=== PATIENT | female | born 1940 | race African-American/Black ===

== ENCOUNTER → 2020-11-19 | Outpatient (CLI) | payer MEDICARE, OTHER ==
[~2020-11-19] MED LIST: AMLO-186 PO; GLIM4TAB8 PO; IBUP200T58 PO
--- NOTE | 2020-11-20 10:13 | RAD ---
DATE: 11/19/2020 9:59 AM EXAM: MAMMO JONATAN SCREENING BILATERAL HISTORY: Screening COMPARISON: 09/10/2015 Bilateral CC and MLO views of the breasts were performed. Bilateral breast tomosynthesis was performed in CC and MLO projections. This study was interpreted with the benefit of Computerized Aided Detection (CAD). FINDINGS: Breast Density: SCATTERED The breast parenchyma shows scattered fibroglandular densities. Breast parenchyma level B No suspicious masses, microcalcifications or architectural distortion is present to suggest malignancy in either breast. The visualized axillae are unremarkable. IMPRESSION: No mammographic evidence of malignancy. BI-RADS CATEGORY: 1 NEGATIVE RECOMMENDED FOLLOW-UP: 12M 12 MONTH FOLLOW-UP Annual screening mammography is recommended, unless clinically indicated sooner based on symptoms or change in physical exam. PQRS compliance statement: Patient information was entered into a reminder system with a target due date for the next mammogram. Mammography is a sensitive method for finding small breast cancers, but it does not detect them all and is not a substitute for careful clinical examination. A negative mammogram does not negate a clinically suspicious finding and should not result in delay in biopsying a clinically suspicious abnormality. "Our facility is accredited by the [employer] Mammography Program."
== END ==
LOC: MAMMO 09:45
PROVIDERS: ATTEND Internal Medicine
DX: Z12.31 Encounter for screening mammogram for malignant neoplasm of breast (principal)
CPT/HCPCS: 77063; 77067

== ENCOUNTER → 2021-01-04 | Outpatient (CLI) | payer MEDICARE ==
--- NOTE | 2021-01-04 14:22 | RAD ---
EXAM: AP, lateral and oblique views of the right knee DATE: 01/04/2021 11:04 AM CLINICAL INDICATION: Reason: PAIN,INJURED KNEE LIFTING FLOWER POT. / Spl. Instructions: / History: COMPARISON: None. FINDINGS: Changes of right medial compartment hemiarthroplasty in good alignment without definite hardware comp lication. Lateral compartment osteophytes with mild joint space narrowing. Moderate right knee joint effusion with joint bodies patellar recess. Decreased bone mineral density. IMPRESSION: 1. Moderate knee joint effusion with joint body in the suprapatellar recess. 2. Right knee joint osteoarthritis with mild lateral compartment joint space narrowing and small ost eophytes. 3. Changes of medial unicompartmental arthroplasty without definite hardware complication or associa samaria fracture. Electronically signed by: Rojelio Jackson MD (01/04/2021 2:19 PM) [id number]
== END ==
LOC: RAD 10:53
PROVIDERS: ATTEND Internal Medicine
DX: M17.11 Unilateral primary osteoarthritis, right knee (principal); M25.461 Effusion, right knee
CPT/HCPCS: 73562

== ENCOUNTER 2021-08-19 05:53 | Day surgery (SDC) | payer MEDICARE ==
[~2021-08-19] VITALS: Ht 161.3 cm; Wt 75.9 kg
[2021-08-19] MEDS ORDERED: HYDROmorphone 2 MG/ML VIAL IVP PRN (06:00)
[2021-08-19] MEDS ORDERED: fentaNYL PF VIAL 100 MCG/2 ML VIAL IVP PRN ×2 (06:00)
[2021-08-19] MEDS ORDERED: MORPHINE SULFATE 2 MG/ML INJ. IVP PRN (06:00)
[2021-08-19] MEDS ORDERED: PROCHLORPERAZINE 10 MG/2 ML VIAL. IVP PRN (06:00)
[2021-08-19] MEDS ORDERED: IV RINGERS,LACTATED 1000ML 1,000 ML IV SCH (06:00)
[2021-08-19 06:27] VITALS: BP 158/70
[2021-08-19] MEDS ORDERED: DEXAMETHASONE SOD PHOS 4 MG/ML VIAL ONE (06:46)
[2021-08-19] MEDS ORDERED: PROPOFOL 10 MG/ML (20ML) VIAL. IV ONE (06:46)
[2021-08-19] MEDS ORDERED: ONDANSETRON PF 4 MG/2 ML VIAL. ONE (06:47)
[2021-08-19] MEDS ORDERED: fentaNYL PF VIAL 100 MCG/2 ML VIAL ONE (06:49)
[2021-08-19] MEDS ORDERED: LIDOCAINE 1% PF 30 ML VIAL. ONE (07:12)
[2021-08-19] MEDS ORDERED: 0.9 % SODIUM CHLORIDE 20 ML VIAL. IJ ONE (07:19)
[2021-08-19] MEDS ORDERED: LIDOCAINE 2% PF 5 ML VIAL. ONE (07:19)
[2021-08-19] MEDS ORDERED: BUPIVACAINE MPF 0.25% 30 ML VIAL. ONE (07:20)
[2021-08-19] MEDS ORDERED: TRAM50TA PO (08:02)
--- NOTE | 2021-08-19 08:05 | PDOC4 ---
OPERATIVE NOTE Date: Date: Aug 19, 2021 Pre-Op Diagnosis: Carpal tunnel syndrome right Post-Op Diagnosis: Same Procedure Performed: Carpal tunnel release right Surgeon: Anam Anesthesia Type: Azam block Blood Loss: 5 cc Specimans Obtained: None Findings: See dictation Complications: None STEFANIE SERNA Jr., DO Aug 19, 2021 08:05
--- NOTE | 2021-08-19 08:18 | OP ---
DATE OF SURGERY: 08/19/2021 PREOPERATIVE DIAGNOSIS: Carpal tunnel syndrome, chronic, right. POSTOPERATIVE DIAGNOSIS: Carpal tunnel syndrome, chronic, right. PROCEDURE: Release of transverse carpal ligament, right. SURGEON: Serafin Mendieta Jr, DO ANESTHESIA: Azam block. COMPLICATIONS: None. ESTIMATED BLOOD LOSS: 5 mL DESCRIPTION OF PROCEDURE: The patient was taken to the operative suite, given the anesthetic. Following this, the right upper extremity was then prepped and draped in a sterile fashion. Incision was made through skin and subcutaneous tissues along the area of the transverse carpal ligament in line with the radial border of the fourth digit. This was carefully taken through the palmar fascia down to the transverse carpal ligament, which was identified in its entirety. This was then released longitudinally and the underlying nerve was noted to be completely intact at this point. The wound was then thoroughly irrigated. A sterile dressing was applied. Tourniquet was deflated with good return of pulses and capillary refill. The patient was then taken from the operative bed to the postoperative bed, taken to the PACU in stable condition. AZIZA DR: Monet TID: [id number]
[2021-08-19 08:25] VITALS: BP 147/97
[2021-08-19] MEDS ORDERED: traMADol 50 MG TABLET ONE (08:26)
[2021-08-19] MEDS ORDERED: traMADol 50 MG TABLET PO ONE (08:30)
== END 2021-08-19 09:07 | disposition home or self-care (01) ==
LOC: SURG 05:53
PROVIDERS: ATTEND Orthopaedic Surgery
PROC: 01N50ZZ Release Median Nerve, Open Approach (ICD-10-PCS; principal; 2021-08-19 07:30)
DX: G56.01 Carpal tunnel syndrome, right upper limb (principal); I10 Essential (primary) hypertension; E78.00 Pure hypercholesterolemia, unspecified; E11.9 Type 2 diabetes mellitus without complications; Z87.891 Personal history of nicotine dependence; Z79.899 Other long term (current) drug therapy; Z98.51 Tubal ligation status; Z98.890 Other specified postprocedural states; Z72.89 Other problems related to lifestyle; Z88.8 Allergy status to other drugs, medicaments and biological substances
CPT/HCPCS: 64721; 82962; A4930; J0690; J1100; J2405; J2704; J3010; J3490; A4657; A6452

== ENCOUNTER 2021-10-14 05:49 | Day surgery (SDC) | payer MEDICARE ==
[~2021-10-14] VITALS: Ht 160 cm; Wt 76.0 kg
[~2021-10-14 05:49] MED LIST changes: +TRAM50TA PO
[2021-10-14] MEDS ORDERED: PROCHLORPERAZINE 10 MG/2 ML VIAL. IVP PRN (06:00)
[2021-10-14] MEDS ORDERED: MORPHINE SULFATE 2 MG/ML INJ. IVP PRN (06:00)
[2021-10-14] MEDS ORDERED: HYDROmorphone 2 MG/ML INJ. IVP PRN (06:00)
[2021-10-14] MEDS ORDERED: fentaNYL PF VIAL 100 MCG/2 ML VIAL IVP PRN ×2 (06:00)
[2021-10-14] MEDS ORDERED: IV RINGERS,LACTATED 1000ML 1,000 ML IV SCH (06:00)
[2021-10-14] MEDS ORDERED: LOSA-73 PO (06:20)
[2021-10-14] MEDS ORDERED: PROPOFOL 10 MG/ML (20ML) VIAL. IV ONE (06:51)
[2021-10-14] MEDS ORDERED: LIDOCAINE 2% PF 5 ML VIAL. ONE (06:52)
[2021-10-14] MEDS ORDERED: ONDANSETRON PF 4 MG/2 ML VIAL. ONE (06:52)
[2021-10-14] MEDS ORDERED: DEXAMETHASONE SOD PHOS 4 MG/ML VIAL ONE (06:52)
[2021-10-14] MEDS ORDERED: fentaNYL PF VIAL 100 MCG/2 ML VIAL ONE ×2 (06:54→08:35)
[2021-10-14] MEDS ORDERED: BUPIVACAINE MPF 0.25% 30 ML VIAL. ONE (06:55)
[2021-10-14] MEDS ORDERED: SEVOFLURANE 16 TO 30 MINUTES. IH ONE (07:55)
[2021-10-14] MEDS ORDERED: TRAM50TA PO (08:05)
--- NOTE | 2021-10-14 08:08 | DISCH ---
DISCHARGE INSTRUCTIONS Condition on Discharge Condition on Discharge: Stable Activity After Discharge Activity Instructions for Disc: Avoid exertion Lifting Instructions after Dis: No pulling or pushing Driving Instructions after Dis: Do not drive today Wound Incision Care Wound/Incision Care: Ice to area for comfort, Keep wound elevated Other wound/incision instructi: May change dressings to sterile Band-Aid postoperative day #3 Follow-Up Follow up with: Anam in 10 to 14 days STEFANIE SERNA Jr. DO Oct 14, 2021 08:08
--- NOTE | 2021-10-14 08:09 | PDOC4 ---
OPERATIVE NOTE Date: Date: Oct 14, 2021 Pre-Op Diagnosis: Carpal tunnel syndrome left Post-Op Diagnosis: Same Procedure Performed: Left carpal tunnel release Surgeon: Anam Anesthesia Type: General Blood Loss: 5 cc Specimans Obtained: None Findings: See dictation Complications: None STEFANIE SERNA Jr. DO Oct 14, 2021 08:09
[2021-10-14 08:36] VITALS: BP 178/95
--- NOTE | 2021-10-14 08:53 | HP ---
DATE OF SERVICE: 10/14/2021 ADMIT DATE: 10/14/2021 REASON FOR HOSPITAL VISIT TODAY: Carpal tunnel left. BRIEF HISTORY: At this point, she has already undergone a right carpal tunnel release and has done extremely well and is healing well without any signs or symptoms of infection, no drainage, no problems. However, at this point, she is having some issues with numbness and tingling continuing since she already has diagnosis of chronic carpal tunnel syndrome on the left as well as weakness and decreased sensation, which is not responding to conservative therapies. REVIEW OF SYSTEMS: Unremarkable other than the current orthopedic issues. MEDICAL HISTORY: Diabetes, hypertension, hyperlipidemia. SURGICAL HISTORY: Bilateral knee surgery, foot surgery on the left, tubal ligation, right carpal tunnel release. FAMILY HISTORY: Breast cancer. SOCIAL HISTORY: The patient does not use any alcohol or tobacco at this point. MEDICATIONS: Include glimepiride, naproxen, multivitamin, amlodipine, Actos, meloxicam, simvastatin. MEDICATION ALLERGIES: ASPIRIN, METFORMIN AND LIPITOR. PHYSICAL EXAMINATION: GENERAL: She is alert and oriented. HEENT: She does not have any issues as far as HEENT is within normal limits. LUNGS: Clear to auscultation. ABDOMEN: Soft and nontender. HEART: Regular rate and rhythm. EXTREMITIES: Physical examination of the upper extremity on the left reveals her to be positive Tinel's, positive Phalen's test as well as thenar atrophy noted at this point. Distal vascular status is intact with decreased sensation in the median distribution only. IMPRESSION: Medical history is documented in left carpal tunnel syndrome, chronic. PLAN: At this time, when she has seen anesthesia, we will go to the OR for a left carpal tunnel release. She is already well aware of the risks, complications as well as benefits and expectations of surgery, postoperative protocol and followup. PASTOR DR: Monet TID: [id number]
--- NOTE | 2021-10-14 13:06 | OP ---
DATE OF SURGERY: 10/14/2021 PREOPERATIVE DIAGNOSIS: Carpal tunnel syndrome, left. POSTOPERATIVE DIAGNOSIS: Carpal tunnel syndrome, left. PROCEDURE: Carpal tunnel release, left. SURGEON: Serafin Mendieta Jr, DO ANESTHESIA: General. COMPLICATIONS: None. ESTIMATED BLOOD LOSS: 5 mL DESCRIPTION OF PROCEDURE: Left upper extremity was then prepped and draped in a sterile fashion. Incision was made directly over the area of the transverse carpal ligament in line with the radial border of the fourth digit. This was carefully down through skin and subcutaneous tissues down through the palmar fascia. Once through the palmar fascia, the transverse carpal ligament was identified at this point. A minimal portion of the insertion of the thenar musculature was removed in order to make the incision longitudinally through the transverse carpal ligament, which was released in its entirety. The underlying nerve was noted to be intact. The wound was then thoroughly irrigated. It was reapproximated in an interrupted fashion using 3-0 nylon. The wound was then infiltrated with local. Sterile dressing was applied. The tourniquet was deflated with good return of pulses and capillary refill. The patient was then taken from the operative bed to the postoperative bed, taken to the PACU in stable condition. ADDENDUM DESCRIPTION OF PROCEDURE: Then following this, the lateral compartment was inspected. Tibial side had some fraying, however, no other significant abnormalities noted at the meniscus or chondral surface and throughout the arc of motion. This was then thoroughly irrigated. All instruments were removed. Wounds were reapproximated and local placed in the portal sites. Sterile dressing was applied. The patient was then taken from the operative bed to the postoperative bed, taken to the PACU in stable condition. DARIN/KHALIF/FRAN DR: Monet TID: [id number]
== END 2021-10-14 09:29 | disposition home or self-care (01) ==
LOC: SURG 05:49
PROVIDERS: ATTEND Orthopaedic Surgery
DX: G56.02 Carpal tunnel syndrome, left upper limb (principal); I10 Essential (primary) hypertension; E11.9 Type 2 diabetes mellitus without complications; E78.00 Pure hypercholesterolemia, unspecified; Z98.51 Tubal ligation status; Z98.890 Other specified postprocedural states; Z79.899 Other long term (current) drug therapy; Z87.891 Personal history of nicotine dependence; Z88.8 Allergy status to other drugs, medicaments and biological substances; Z80.3 Family history of malignant neoplasm of breast
CPT/HCPCS: 64721; 82962; A4930; A6402; J0690; J2405; J2704; J3010; J3490; A4657; A6452; J1100